=== PATIENT | male | born 1965 | race Caucasian/White ===

== ENCOUNTER → 2017-01-15 | Outpatient (CLI) | payer BC ==
[~2017-01-15] MED LIST: GADOBUTROL 10mMol/10ml INJECTION IV ONE; IOTHALAMATE MEGLUMINE 60% (600mg/ml) 30ml INJ IV ONE; MULT-37 PO; NORMAL SALINE 50 ML IV ONE
--- NOTE | 2017-01-15 15:52 | DI ---
INDICATION: ITS.REASON: M25.552 PAIN IN LEFT HIP ARTHROGRAM HIP LT W/FLUORO: HIP INJECTION FOR MRI ARTHROGRAM: The procedure including the benefits, risks, and alternatives were explained in detail to the patient. All of their questions were answered. They stated that they understood and wished to proceed. Informed consent was obtained. A pre-procedural timeout was done to verify the patient and proper procedure. Using sterile technique, local Xylocaine anesthesia, and fluoroscopic guidance, a 22-gauge spinal needle was advanced into the left hip. A small amount of x-ray contrast was injected to confirm proper intra-articular position of the needle tip. A fluoroscopic image was then taken and archived. 8 cc of dilute gadolinium were slowly instilled within the joint of the left hip. The needle was then removed. The procedure was completed without complication. Following this, the patient was taken by wheelchair to MRI for his scan. Please see the separate MRI report. Impression: Technically successful left intra-articular hip joint injection for a MRI arthrogram. Fluoroscopy dose: 11.66 mGy (Cumulative air kerma) Bronson Middleton RPA/MOON performed this under my personal supervision .
--- NOTE | 2017-01-15 16:48 | DI ---
Indication: ITS.REASON: M25.552 PAIN IN LEFT HIP PROCEDURE: MRI HIP LEFT W/ CONTRAST: Encounter: Initial Comparison: None Technique: Multiplanar multisequence MR imaging of the left hip was performed after the administration of intra-articular contrast. The arthrogram injection is described in a separate procedural report. Findings: No acute fracture. Bone marrow signal intensity is normal. Injected contrast does not communicate with the iliopsoas bursa. Muscular signal intensity is normal. Hamstring origins are normal. The visualized soft tissues of the left hemipelvis are within normal limits. There is a tear of the superior labrum extending from 12-1 o'clock. Some cartilage loss also on the femoral head and acetabulum. The ligamentum teres appears intact. No additional labral tear is appreciated. Impression: Anterosuperior labral tearing. .
== END ==
LOC: IMA 14:18
PROVIDERS: ATTEND Family Medicine
DX: S73.192A Other sprain of left hip, initial encounter (principal); X58.XXXA Exposure to other specified factors, initial encounter; Y93.B9 Activity, other involving muscle strengthening exercises; Y92.9 Unspecified place or not applicable; Y99.9 Unspecified external cause status; M25.552 Pain in left hip
CPT/HCPCS: 27093; 73722; 77002; A9585; J7050; Q9961

== ENCOUNTER → 2017-01-23 | Outpatient (CLI) | payer BC ==
[~2017-01-23] MED LIST changes: -GADOBUTROL 10mMol/10ml INJECTION IV ONE; -IOTHALAMATE MEGLUMINE 60% (600mg/ml) 30ml INJ IV ONE; -NORMAL SALINE 50 ML IV ONE
--- NOTE | 2017-01-23 13:13 | DI ---
Indication: ITS.REASON: S83.271 Complex tear of lateral meniscus PROCEDURE: MRI KNEE RIGHT W/O CONTRAST: Encounter: Initial Comparison: None Technique: Multiplanar multisequence MR imaging of the right knee was performed without contrast. Findings: Hyperintense signal and irregularity of the posterior root of the lateral meniscus consistent with tearing. Horizontal undersurface tear of the posterior horn medial meniscus extending into the posterior root. ACL reconstruction. The graft appears intact. PCL is intact. The MCL and lateral collateral ligament complex are intact. The extensor mechanism is normal. No acute fracture. Metallic artifact from the ACL reconstruction hardware. Cartilage of the medial compartment shows deep partial-thickness cartilage loss. Lateral compartment cartilage is intact. Patellofemoral compartment cartilage shows mild thinning in the medial facet. Small joint effusion. No Alcocer's cyst. Muscular signal intensity is within normal limits. Impression: 1. Medial and lateral meniscal tears. 2. Chondromalacia. .
== END ==
LOC: IMA 10:10
PROVIDERS: ATTEND Chiropractor
DX: S83.241A Other tear of medial meniscus, current injury, right knee, initial encounter (principal); S83.281A Other tear of lateral meniscus, current injury, right knee, initial encounter; X58.XXXA Exposure to other specified factors, initial encounter; Y93.02 Activity, running; Y92.9 Unspecified place or not applicable; Y99.9 Unspecified external cause status; M25.461 Effusion, right knee; M94.261 Chondromalacia, right knee